=== PATIENT | female | born 2000 | race African-American/Black ===

== ENCOUNTER 2023-11-01 04:18 | Inpatient (IN) ==
[2023-11-01 04:26] VITALS: BMI 46.6
[2023-11-01 04:41] LABS: BILIRUBIN,URINE NEGATIVE (NEGATIVE); BLOOD/HEMOGLOBIN,URINE 2+ (NEGATIVE); GLUCOSE, URINE NEGATIVE (NEGATIVE); KETONES,URINE 4+ (NEGATIVE); LEUKOCYTE ESTERASE ,URINE NEGATIVE (NEGATIVE); NITRITES,URINE NEGATIVE (NEGATIVE); PROTEIN,URINE 2+ (NEGATIVE); UROBILINOGEN,URINE NORMAL (NORMAL)
[2023-11-01 04:47] LABS: AMNISURE ROM TEST THERE IS A RUPTURE (NO RUPTURE); APPEARANCE,URINE CLEAR (CLEAR); COLOR,URINE YELLOW (YELLOW)
[2023-11-01 04:48] LABS: BACTERIA,URINE TRACE /HPF (NEGATIVE); SQUAMOUS EPITHELIAL CELL,UR MODERATE /HPF (NEGATIVE)
[2023-11-01] MEDS: D5 1/2 NS 1,000 ML 1,000 ML IV SCH (04:48)
[2023-11-01 04:54] LABS: ALANINE AMINOTRANSFERASE 12 Units/L (12-78); ALBUMIN 3.3 g/dL (3.4-5.0); ALKALINE PHOSPHATASE 187 Units/L (46-116); ASPARTATE AMINO TRANSFERASE 12 Units/L (15-37); BLOOD UREA NITROGEN 5 mg/dL (7-18); CALCIUM 9.5 mg/dL (8.5-10.1); CARBON DIOXIDE 24.5 mmol/L (21-32); CHLORIDE 101 mmol/L (98-107); COR CA(FOR HYPOALB) 10.1 mg/dL (8.5-10.1); CREATININE 0.78 mg/dL (0.55-1.02); GLUCOSE 97 mg/dL (65-99); POTASSIUM 3.7 mmol/L (3.5-5.1); SODIUM 137 mmol/L (136-145); eGFR NON BLACK RACES > 60 (>60)
[2023-11-01] MEDS ORDERED: REGLAN INJ 10 MG VIAL IVP PRN (05:36)
[2023-11-01] MEDS ORDERED: ZOFRAN INJ 4 MG VIAL IVP PRN (05:36)
[2023-11-01] MEDS: LR 1,000 ML IV 1,000 ML IV ONE ×2 (05:57→06:33)
[2023-11-01] MEDS ORDERED: D5 1/2 NS 1,000 ML 1,000 ML IV SCH (06:00)
[2023-11-01] MEDS: OXYTOCIN 20 UNIT/1,000 ML-NS 20 UNIT/1,000 ML PLAST..BAG IV PRN (06:00)
[2023-11-01] MEDS: NUBAIN INJ 20 MG AMP IVP PRN (06:00)
[2023-11-01] MEDS: NUBAIN INJ 200 MG VIAL MULTIDOSE ONE (06:32)
--- NOTE | 2023-11-01 06:59 | DR.OB ---
OB QUICK NOTE Assessment/Plan (1) Active labor at term: Assessment/Plan: L&D 11/01/23 at 6:50am S-No complaint except pain with CTX. O-Afebrile,VSS NDM=679 with good LTV, +accel, no decel. CTX=q 1 1/2 min., mod. by palpation CVX=6-7cm/90%/0/VTX Forebag noted. AROM with clear fluid. IUPC and FSE placed. A-IUP at 39 2/7 weeks in active labor SROM P-Cont. pitocin induction Anticipate
[2023-11-01] MEDS: FENTANYL VIAL INJ 100 mcg ONE (07:27)
[2023-11-01] MEDS: NAROPIN EPIDURAL 0.2% 100 ML ONE (07:30)
[2023-11-01] MEDS: PITOCIN IVP ONE (09:35)
--- NOTE | 2023-11-01 09:48 | DR.OB ---
OB QUICK NOTE Assessment/Plan (1) Active labor at term: Assessment/Plan: Delivery Note RESEARCH CONSULTANT 11/01/23 at 9:32am Patient complete and pushing. Head delivered over intact perineum. No nuchal cord. Nose and mouth bulb suctioned. Body delivered over intact perineum. Cord clamped x 2 and cut. handed to attendant. Late meconium noted. Cord sent for gases. Placenta delivered spontaneously / intact / 3 vessel cord. No CVX / vaginal / perineal tears. Viable female infant delivered by , VTX/OA, wt=7'3" and 8/9, stable to NBN. Mother stable to RR. QPU=184by.
[2023-11-01] MEDS ORDERED: MILK OF MAGNESIA PO PRN (11:13)
[2023-11-01] MEDS ORDERED: VENTOLIN or PROAIR HFA IN PRN (11:13)
[2023-11-01] MEDS ORDERED: MOTRIN TAB 800 MG PO PRN (11:13)
[2023-11-01] MEDS ORDERED: AMBIEN PO PRN (11:13)
[2023-11-01] MEDS ORDERED: PROVENTIL NEB TX 0.083% 2.5MG/ 3ML NEB PRN (11:40)
[2023-11-01] MEDS: PITOCIN ONE (13:47)
[2023-11-01] MEDS: OXYTOCIN 20 UNIT/1,000 ML-NS 20 UNIT/1,000 ML PLAST..BAG IV SCH (13:48)
[2023-11-01] MEDS: ADACEL or BOOSTRIX TDaP VACCINE IM ONE (14:03)
[2023-11-01] MEDS: MOTRIN TAB 800 MG PO PRN (22:54)
[2023-11-02 00:28] VITALS: O2SAT 99
[2023-11-02 04:52] LABS: HEMATOCRIT 34.6 % (36.0-47.0); HEMOGLOBIN 11.4 g/dL (12.0-16.0)
[2023-11-02] MEDS: DERMOPLAST PAIN RELIEF SPRAY TOP PRN (05:11)
[2023-11-02 08:54] VITALS: BP 126/78; PULSE 101; RESP 20; TEMP 98.1
[2023-11-02] MEDS: PRENATAL PLUS PO SCH (12:00)
== END 2023-11-02 13:10 | disposition home or self-care (01) | DRG 807 ==
LOC: ER 04:18 → LD 05:11 → MED/SURG 11:13
PROVIDERS: ADMIT Specialist; ATTEND Specialist
DX: Z37.0 Single live birth; O99.513 Diseases of the respiratory system complicating pregnancy, third trimester; Z3A.39 39 weeks gestation of pregnancy; J45.998 Other asthma; Z01.812 Encounter for preprocedural laboratory examination; R87.618 Other abnormal cytological findings on specimens from cervix uteri